=== PATIENT | female | born 1965 | race Caucasian/White ===

== ENCOUNTER → 2023-02-18 | Outpatient (CLI) | payer OTHER ==
--- NOTE | 2023-02-18 23:18 | CT ---
EXAMINATION TYPE: CT abdomen pelvis w con DATE OF EXAM: 02/18/2023 COMPARISON: HISTORY: Infrarenal abdominal aortic aneurysm without rupture. CT DLP: 860.4 mGycm Automated exposure control for dose reduction was used. TECHNIQUE: Helical acquisition of images was performed from the lung bases through the pelvis. CONTRAST: Performed without Oral Contrast and with IV Contrast, patient injected with 70 ml mL of Isovue 300. FINDINGS: LOWER CHEST : The visualized lung bases are clear. There are no pleural or pericardial effusions. ABDOMEN: Liver and Biliary system: There is a diffuse nodular contour to the liver which is compatible with c irrhosis. No suspicious liver lesions are otherwise seen.. Adrenal glands: Normal. Kidneys and ureters: Normal. Spleen: The spleen is mildly enlarged measuring 14.1 cm in craniocaudal dimension. Pancreas: Normal. Gallbladder: Normal. Lymph nodes, Peritoneum and mesentery: There is no mesenteric or retroperitoneal lymphadenopathy. Gastrointestinal tract: There are no dilated loops of bowel or free intraperitoneal air. . The appe ndix appears absent Aorta/IVC: There is a thin stent seen within the abdominal aorta which does appear to be faintly pa tent with stump surrounding thrombus. The largest portion of the sac surrounding the stent only measu res up to 2.8 cm in diameter. 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 Left common iliac shirley ry stent appears patent. IVC normal. Abdominal wall: Normal. PELVIS: Fluid: There is no free fluid in the pelvis. Lymph Nodes: There is no pelvic or inguinal lymphadenopathy.. Urinary bladder: Normal. BONES: There are no osseous destructive lesions.. ADDITIONAL SIGNIFICANT FINDINGS: None. IMPRESSION: 1. Cirrhosis and splenomegaly. 2. No acute process seen within the abdomen or pelvis. 3. Stent within the abdominal aorta without evidence of aneurysmal dilation with the surrounding sac with additional atherosclerotic and vascular changes described above.
== END | disposition home or self-care (01) ==
LOC: RADCTMAIN 17:42
PROVIDERS: ATTEND Internal Medicine Cardiovascular Disease
DX: I71.43 Infrarenal abdominal aortic aneurysm, without rupture (principal); K74.60 Unspecified cirrhosis of liver; R16.1 Splenomegaly, not elsewhere classified; Z95.5 Presence of coronary angioplasty implant and graft
CPT/HCPCS: 74177; Q9967

== ENCOUNTER → 2024-12-25 | Outpatient (CLI) | payer OTHER ==
[2024-12-25 15:35] LABS: Cholesterol 96.00 mg/dL (0.00-200.00); HDL Cholesterol 40.50 mg/dL (40.00-60.00); LDL Cholesterol,Calculated 43.0 mg/dL (0.0-131.0); Triglycerides 62.60 mg/dL (0.00-149.00); VLDL Calculation 12.52 mg/dL (5.00-40.00)
[2024-12-25 15:48] LABS: ALT 32 U/L (8-44); AST 75 U/L (13-35); Albumin 3.1 g/dL (3.8-4.9); Albumin/Globulin Ratio 1.15 Ratio (1.60-3.17); Alkaline Phosphatase 131 U/L (41-126); Anion Gap 10.50 mmol/L (4.00-12.00); BUN/Creat Ratio 9.75 Ratio (12.00-20.00); Blood Urea Nitrogen 7.8 mg/dL (9.0-27.0); Calcium 7.7 mg/dL (8.7-10.3); Carbon Dioxide 20.5 mmol/L (21.6-31.8); Chloride 107 mmol/L (96-109); Globulin 2.7 g/dL (1.6-3.3); Glucose 86 mg/dL (70-110); Potassium 3.9 mmol/L (3.5-5.5); Sodium 138 mmol/L (135-145); Total Protein 5.8 g/dL (6.2-8.2)
[2024-12-25 15:50] LABS: Anisocytosis (M) 2+ (None Seen); Basophils # (A) 0.02 X 10*3/uL (0.00-0.10); Basophils % (A) 0.7 %; Eosinophils # (A) 0.10 X 10*3/uL (0.04-0.35); Eosinophils % (A) 3.5 %; HCT 28.0 % (37.2-46.3); HGB 8.9 g/dL (12.0-15.0); Immature Grans, Automated 0 %; Lymphocytes # (A) 0.79 X 10*3/uL (0.90-5.00); Lymphocytes % (A) 28.0 %; MCH 24.7 pg (27.0-32.0); MCHC 31.8 g/dL (32.0-37.0); MCV 77.8 FL (80.0-97.0); Macrocytosis (M) 2+ (None Seen); Microcytosis (M) 2+ (None Seen); Monocytes # (A) 0.50 X 10*3/uL (0.20-1.00); Monocytes % (A) 17.7 %; NRBC Per 100 WBC 0 X 10*3/uL (0.00-0.01); Neutrophils # (A) 1.41 X 10*3/uL (1.80-7.70); Neutrophils % (A) 50.1 %; Platelet Count 78 X 10*3/uL (140-440); RBC 3.60 X 10*6/uL (4.10-5.20); RDW 26.2 % (11.5-14.5); Target Cells 2+ (None Seen); WBC 2.82 X 10*3/uL (4.50-10.00)
== END | disposition home or self-care (01) ==
LOC: LABWHC1 09:09
PROVIDERS: ATTEND Family Medicine
DX: Z68.42 Body mass index [BMI] 45.0-49.9, adult (principal)
CPT/HCPCS: 36415; 80053; 80061; 82306; 84443; 85025